=== PATIENT | female | born 1965 | race Caucasian/White ===

== ENCOUNTER → 2020-03-17 | Outpatient (CLI) | payer OTHER ==
[~2020-03-17] MED LIST: GADOTERATE 7.5 MMOL/15 ML VIAL ONE
== END | disposition home or self-care (01) ==
LOC: RAD 09:10
PROVIDERS: ATTEND Podiatrist Foot & Ankle Surgery
DX: M72.2 Plantar fascial fibromatosis (principal); M51.16 Intervertebral disc disorders with radiculopathy, lumbar region; M65.872 Other synovitis and tenosynovitis, left ankle and foot
CPT/HCPCS: 72158; 73720; A9575

== ENCOUNTER 2020-04-07 15:10 | Outpatient (CLI) | payer OTHER | END 2020-04-07 23:59 | disposition home or self-care (01) | LOC: CFH 15:10 | PROVIDERS: ATTEND Family Medicine | DX: Z12.31 Encounter for screening mammogram for malignant neoplasm of breast (principal) | CPT/HCPCS: 77063; 77067 ==